=== PATIENT | male | born 1955 | race Caucasian/White ===

== ENCOUNTER 2020-09-29 13:11 | Outpatient (CLI) | payer MEDICARE, SELFPAY ==
--- NOTE | 2020-09-29 13:51 | XR_ITS ---
NOTE: Report was unsigned for reason: Ordering provider was edited. Original Signature date and time was: 09/29/20 @ 7075 WS: [id number] THORACIC SPINE TECHNIQUE: 3 views of the thoracic spine CLINICAL INFORMATION: NECK AND BACK PAIN COMPARISON: None. FINDINGS: Mild thoracic curve convex left. Spinal stimulator with electrode leads in the mid thoracic canal. Prior postoperative changes pedicle screw fixation with interconnecting rods mid thoracic spine. This is unchanged. Diffuse hypertrophic changes thoracic spine. Chronic appearing anterior wedging in the mid thoracic spine is unchanged. [facility] XR/XR thoracic spine 3V* [id number] IMPRESSION: 1. Dorsal marizol and pedicle screw fixation mid thoracic spine appears unchanged in good position. 2. Thoracic spinal canal stimulator appears intact. 3. Moderate thoracic kyphosis with hypertrophic changes thoracic spine
--- NOTE | 2020-09-29 13:51 | XR_ITS ---
NOTE: Report was unsigned for reason: Ordering provider was edited. Original Signature date and time was: 09/29/20 @ 1932 WS: [id number] CERVICAL SPINE TECHNIQUE: 3 views of the cervical spine CLINICAL INFORMATION: NECK AND BACK PAIN COMPARISON: None. FINDINGS: Straightening of the normal cervical lordosis. Moderate spondylitic changes. Normal C1-2 articulation. Normal prevertebral soft tissues. Moderate facet arthropathy mid and lower cervical spine. Normal dens. No acute cervical spine findings. [facility] XR/XR cervical spine 3V* [id number] IMPRESSION: Moderate spondylitic changes cervical spine as described above. No acute findin gs.
--- NOTE | 2020-09-29 13:51 | XR_ITS ---
NOTE: Report was unsigned for reason: Ordering provider was edited. Original Signature date and time was: 09/29/20 @ 4381 WS: [id number] LUMBAR SPINE TECHNIQUE: 3 views of the lumbar spine CLINICAL INFORMATION: NECK AND BACK PAIN COMPARISON: None. FINDINGS: Five [id number] lumbar vertebral bodies. Lumbar spinal stimulator with electrodes extending into the dorsal spinal canal lower thoracic spine. Hypertrophic changes lumbar spine. Hypertrophic changes lower thoracic spine. Mild disc space narrowing L4-L5 and L5-S1. No acute appearing compression fractures. Mild chronic anterior wedging lower thoracic spine. Advanced facet arthropathy L5-S1. [facility] XR/XR lumbar spine 2-3V* [id number] IMPRESSION: 1. Moderate spondylitic changes lumbar spine described above. 2. Mild disc space narrowing L4-L5 and L5-S1. 3. Chronic appearing compression deformities in the lower thoracic spine
== END 2020-09-29 13:12 | disposition home or self-care (01) ==
PROVIDERS: PCP Nurse Practitioner Family; Visit Provider Anesthesiology
DX: M54.2 Cervicalgia (principal); M40.294 Other kyphosis, thoracic region
CPT/HCPCS: 72040; 72072; 72100

== ENCOUNTER → 2020-12-13 11:31 | Outpatient (BNVA) | payer MEDICARE, SELFPAY | PROVIDERS: PCP Nurse Practitioner Family; Visit Provider Orthopaedic Surgery | DX: M16.11 Unilateral primary osteoarthritis, right hip (principal); I25.2 Old myocardial infarction | CPT/HCPCS: 73502 ==

== ENCOUNTER → 2021-01-09 08:13 | Outpatient (BNVA) | payer MEDICARE, SELFPAY | PROVIDERS: PCP Nurse Practitioner Family; Referring Provider Orthopaedic Surgery; Visit Provider Urology | DX: R30.0 Dysuria (principal); Z12.5 Encounter for screening for malignant neoplasm of prostate; N40.1 Benign prostatic hyperplasia with lower urinary tract symptoms | CPT/HCPCS: 81003; G0103 ==

== ENCOUNTER → 2021-09-13 09:17 | Outpatient (BNVA) | payer MEDICARE, SELFPAY | PROVIDERS: PCP Nurse Practitioner Family; Referring Provider Nurse Practitioner Family; Visit Provider Orthopaedic Surgery | DX: M16.11 Unilateral primary osteoarthritis, right hip (principal) | CPT/HCPCS: 73502 ==

== ENCOUNTER → 2021-10-27 08:31 | Outpatient (BNVA) | payer MEDICARE, SELFPAY | PROVIDERS: PCP Nurse Practitioner Family; Visit Provider Internal Medicine | DX: I25.10 Atherosclerotic heart disease of native coronary artery without angina pectoris (principal); I25.2 Old myocardial infarction; R06.02 Shortness of breath; F17.200 Nicotine dependence, unspecified, uncomplicated | CPT/HCPCS: 99214 ==

== ENCOUNTER 2021-12-11 08:06 | Outpatient (CLI) | payer MEDICARE, SELFPAY ==
[2021-12-11 08:48] VITALS: BMI 35.2
--- NOTE | 2021-12-11 08:49 | USCV_ITS ---
Richard Blakely Age: 66 Gender: M : 1955 Exam Date: 12/11/2021 09:10 Ordering Phys: Shalom Carpenter M.D ([email or web address]) Technologist: Exam Location: [facility] [place] Indication: chest pain BP: 145 / 75 HR: 74 Rhythm: Sinus Technical Quality: Adequate MEASUREMENTS (Male / Female) Normal Values 2D ECHO LV Diastolic Diameter PLAX 4.3 cm 4.2 - 5.9 / 3.9 - 5.3 cm LV Systolic Diameter PLAX 3.1 cm IVS Diastolic Thickness 1.3 cm 0.6 - 1.0 / 0.6 - 0.9 cm IVS Systolic Thickness 1.2 cm LVPW Diastolic Thickness 1.4 cm 0.6 - 1.0 / 0.6 - 0.9 cm LVPW Systolic Thickness 1.8 cm LVOT Diameter 2.1 cm LV Ejection Fraction 2D Teich 56.3 % LV Ejection Fraction MOD 2C 70.7 % LV Ejection Fraction 2C AL 69.0 % LA Diameter 3.6 cm Aorta at Sinotubular Diameter 3.1 cm M-MODE Aortic Annulus Diameter 3.8 cm LA Ao Ratio MM 0.9 MV E Point Septal Separation 1.8 cm DOPPLER AV Peak Velocity 120.0 cm/s LVOT Peak Velocity 71.0 cm/s AV Area Cont Eq vti 2.6 cm squared AV Area Cont Eq pk 2.1 cm squared MV Area PHT 5.0 cm squared Mitral E to A Ratio 0.5 MV E' Velocity 27.5 cm/s Mitral E to MV E' Ratio 4.5 Mitral E to LV E' Lateral Ratio 5.3 Mitral E to LV E' Septal Ratio 3.9 TR Peak Velocity 302.3 cm/s TR Peak Gradient 36.6 mmHg TV Peak E Velocity 82.0 cm/s Right Atrial Pressure 3.0 mmHg Pulmonary Artery Systolic Pressu 39.6 mmHg PV Peak Velocity 118.0 cm/s FINDINGS Left Ventricle Normal left ventricular size. LV systolic function is mildly reduced with EF of 40-45%. Mild global hypokinesis. Grade 1 diastolic dysfunction. Right Ventricle The right ventricle is normal in size and function. Right Atrium The right atrium is normal in size. Left Atrium The left atrium is normal in size. Mitral Valve Structurally normal mitral valve without significant stenosis or prolapse. There is no mitral regurgitation. Aortic Valve Structurally normal aortic valve without significant sclerosis or stenosis. There is no aortic regurgitation. Tricuspid Valve Structurally normal tricuspid valve without significant stenosis. Mild tricuspid regurgitation. Insufficient TR jet to calculate RVSP Pulmonic Valve Not well visualized. Pericardium Normal pericardium without effusion. Aorta Mildly dilated IVC CONCLUSIONS LV systolic function is mildly reduced with EF of 40 to 45%. Grade 1 diastolic dysfunction Mild tricuspid regurgitation. Mildly dilated aorta. No comparison studies available for Shalom Carpenter MD (Electronically Signed) Final Date: 20 December 2021 18:15 S
--- NOTE | 2021-12-11 08:49 | NMCV_ITS ---
NM sampson perf SPECT r/s* [id number] Richard Blakely Age: 66 Gender: M : 1955 Exam Date: 12/11/2021 09:45 Ordering Phys: Shalom Carpenter M.D ([email or web address]) Technologist: STU Bowman Exam Location: [facility] Indications: SHORTNESS OF BREATH STRESS TEST Please see separate stress test report in [facility] for full findings IMAGE PROTOCOL Rest/Stress 1 Lexiscan Day Radiopharmaceutical Dose (mCi) Administration Site Administered by Rest: Tc-99m 10.8 IV STU Beal Sestamibi Stress:Tc-99m 32.7 IV STU Beal Sestamibi Rest: 11-Dec-2021 60 Discovery 630 Stress: 11-Dec-2021 30 Discovery 630 0.4mg Lexiscan. Supine position only as patient was unable to lay prone. SPECT RESULTS Technical Quality: Excellent Raw Data Analysis: Normal Image Corrections: No attenuation or motion correction applied Summed Stress Score: 0 Summed Rest Score: 0 Summed Difference Score: 0 PERFUSION FINDINGS SPECT images demonstrate homogeneous tracer distribution throughout the myocardium. FUNCTIONAL RESULTS (calculated via Gated SPECT) Stress Image LV EF (%): 47 Stress EDV (mL):125 TID: 0.97 Stress ESV (mL):66 FUNCTIONAL FINDINGS: LV systolic function is mildly reduced with EF of 47% IMPRESSIONS 1. Normal myocardial perfusion imaging with no evidence of ischemia 2. LV systolic function is mildly reduced Shalom Carpenter MD (Electronically Signed) Final Date: 13 December 2021 18:12 S
--- NOTE | 2021-12-11 08:49 | ECG_ITS ---
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 Interpretive Statements NAME OF STUDY: LEXISCAN SESTAMIBI STRESS TEST INDICATION: [Shortness of Breath] Procedure: At the baseline, the blood pressure was 130/81 mmHg with a heart rate of 71 bpm. The electrocardiogram showed normal sinus rhythm, normal axis with normal ST and T's. The Lexiscan was infused over a period of 20 seconds. A total of 0.4 mg of Lexiscan was infused. The stress phase was continued for a total of 5 minutes. Heart rate was at the end of stress phase was 84 bpm and a blood pressure of 115/71 mmHg. The EKG at the peak infusion revealed since normal sinus rhythm with no significant ST-T wave changes. Sestamibi was injected 20 seconds after the Lexiscan infusion. Blood pressure at the end of recovery phase was 111/68 mmHg with a heart rate of 80 bpm. Conclusion: 1. Normal EKG response to Lexiscan infusion 2. No Lexiscan induced chest pain or cardiac arrhythmia. 3. Normal blood pressure and heart rate response. 4. Sestamibi/sestamibi perfusion scan pending; see separate report. Electronically Signed On 01-06-2022 11:56:33 CDT by Shalom Carpenter M.D. [id number]
[2021-12-11] MEDS: perflutren protein-a microsphr 0.22 mg/mL SDV 3 mL IV (09:36)
[2021-12-11 10:45] VITALS: BP 111/68; PULSE 80
[2021-12-11] MEDS: regadenoson 0.4 Mg/5 ml Syringe IVP (10:45)
== END 2021-12-11 08:07 | disposition home or self-care (01) ==
LOC: CDL 08:24
PROVIDERS: PCP Nurse Practitioner Family; Visit Provider Internal Medicine
DX: R06.02 Shortness of breath (principal); R07.9 Chest pain, unspecified; I07.1 Rheumatic tricuspid insufficiency
CPT/HCPCS: 78452; 93017; A9500; C8929; J2785; Q9956

== ENCOUNTER → 2021-12-15 11:00 | Outpatient (BNVA) | payer MEDICARE, SELFPAY | PROVIDERS: PCP Nurse Practitioner Family; Visit Provider Internal Medicine | DX: I25.10 Atherosclerotic heart disease of native coronary artery without angina pectoris (principal); I25.2 Old myocardial infarction; R06.02 Shortness of breath; F17.200 Nicotine dependence, unspecified, uncomplicated | CPT/HCPCS: 99214 ==

== ENCOUNTER → 2022-01-03 15:02 | Outpatient (BNVA) | payer MEDICARE, SELFPAY | PROVIDERS: PCP Nurse Practitioner Family; Visit Provider Orthopaedic Surgery | DX: M16.11 Unilateral primary osteoarthritis, right hip (principal) | CPT/HCPCS: 99213; 99214 ==

== ENCOUNTER 2022-02-05 13:22 | Observation (INO) | payer MEDICARE, SELFPAY ==
[2022-01-23 13:35] VITALS: BMI 35.2
--- NOTE | 2022-01-23 14:08 | ANES.PREANE2 ---
Pre-Anesthetic Assessment Height/Weight: Height 1.78 m Weight 111.13 kg Preop Diagnosis: OA Operation Date: 02/05/22 09:25 Proposed Procedures p Right total hip arthroplasty:00098,M16.11(Not Applicable) - Jin Elliott MD Familial anesthetic complications: None Was Beta Alfredo taken within 24 hours: N/A Was Clonidine taken within 24 hours: N/A Social Tobacco and No alcohol Exam alert, oriented x 3, clear to auscultation bilaterally and regular rate & rhythm Airway Submandibular: within normal limits Cervical ROM: within normal limits Mallampati: Class II Comments: Comments: Missing most teeth Pulmonary Chronic Obstructive Pulmonary Disease Has had worsening SOB for past few months CV/HEM Coronary Artery Disease and Myocardial Infarction (Able to ascend flight of stairs w/o CP) Stress Test 11/2021 Conclusion: 1.? Normal EKG response to Lexiscan infusion 2.? No Lexiscan induced chest pain or cardiac arrhythmia. 3.? Normal blood pressure and heart rate response. 4.? Sestamibi/sestamibi perfusion scan pending; see separate report. TTE 11/2021 ?CONCLUSIONS ?LV systolic function is mildly reduced with EF of 40 to 45%. ?Grade 1 diastolic dysfunction ?Mild tricuspid regurgitation. ?Mildly dilated aorta. ?No comparison studies available for BPH Hepatic None reported GI Gastroesophageal Reflux Disease (Well controlled ) Metabolic None reported Musc/skel Lower Back Pain and Osteoarthritis/DJD Neuropsych Chronic pain on buprenorphine S/P thoracic spinal cord stimulator placement Anesthetic Plan ASA status: 3 Anesthesia: Anesthesia Evaluation, General and Regional (specify below) (Spinal) Other: We discussed risk and benefits of general vs spinal anesthesia including DVT risk, infection, paralysis/catastrophic nerve injury, back bruising/pain, PDPH, conversion to general in case of spinal, PONV, sore throat (sometimes severe), corneal abrasion, positioning and peripheral nerve injuries, life threatening allergic reaction, post operative ICU admission requiring prolonged intubation, stroke, heart attack, , post operative delirium and/or post operative cognitive decline, and rare incidences of recall (under general anesthesia). Patient elects and consents to spinal anesthesia. a Risk of > 500 ml blood loss (7ml/kg in children): No Medications/Allergies Home Medications Medication Instructions Recorded Confirmed Last Taken Type albuterol 90 mcg/actuation aerosol mcg inhalation 08/30/20 01/03/22 Unknown History inhaler gabapentin 800 mg tablet 800 mg PO QID 08/30/20 01/23/22 Unknown History oxycodone-acetaminophen 7.5 mg-325 1 tab PO Q4H PRN Pain 08/30/20 01/23/22 Unknown History mg tablet buprenorphine HCl 300 mcg buccal 300 mcg buccal Q12H 10/27/21 01/23/22 Unknown History film (Belbuca) famotidine 20 mg tablet 20 mg PO BID 10/27/21 01/23/22 Unknown History prednisone 10 mg tablet 10 mg PO DAILY PRN sob 10/27/21 01/23/22 Unknown History amlodipine 5 mg tablet 5 mg PO DAILY #90 tabs 11/22/21 01/23/22 Unknown Rx nitroglycerin 0.4 mg sublingual 0.4 mg sublingual Q5M PRN chest 12/15/21 01/23/22 Unknown Rx tablet (Nitrostat) pain #25 tabs tamsulosin 0.4 mg capsule See Rx Instructions .Route 01/23/22 01/23/22 Unknown Rx .COMPLEX #30 caps Allergies Allergy/AdvReac Type Severity Reaction Status Date / Time Penicillins Allergy Unknown Verified 01/23/22 13:30 PFSH Anesthesia Medical History BPH loc w urin obs/LUTS Compartment syndrome Depression Myocardial infarct 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 Surgical History History of spinal fusion Family History Father , AT AGE 86 Heart disease Mother , AT AGE 88 Cancer ESOPHAGEAL AND BREAST Social History Smoking and tobacco status: current every day smoker Alcohol intake: current Alcohol intake frequency: holidays/special occasions only Marital status: / Current occupational status: retired and disabled History of recent travel: No Data Anesthesia : 01/23/22 14:10 01/23/22 14:10 Cardiac Studies: Echocardiogram 12/11/21 Sestamibi Stress Test (Cardiology) 12/11/21
[2022-01-23 14:17] LABS: Basophils % 0.3 %; Eosinophils # 0.1 10^3/uL (0.0-0.8); Eosinophils % 1.1 %; Hematocrit 47.4 % (42.0-52.0); Lymphocytes # 2.4 10^3/uL (0.8-4.8); Lymphocytes % 19.7 %; Mean Corpuscular HGB Conc 31.6 g/dL (30.0-36.0); Mean Corpuscular Hemoglobin 27.6 pg (28.0-34.0); Mean Corpuscular Volume 87.1 fl (80-94); Mean Platelet Volume 9.6 fL (7.4-10.4); Monocytes # 0.7 10^3/uL (0.2-0.9); Neutrophils # 8.74 10^3/uL (1.8-7.7); Neutrophils % 72.4 %; Nucleated Red Blood Cells % 0 %; Platelet Count 369 10^3/cmm (130-400); Red Blood Count 5.44 10^6/uL (4.1-5.3); Red Cell Distribution Width 13.2 % (12.1-15.1); White Blood Count 12.1 10^3/uL (4.0-10.0)
--- NOTE | 2022-01-23 16:43 | P.ANESASSM_ITS ---
Pre-Anesthetic Assessment Height/Weight: Height 1.78 m Weight 111.13 kg Preop Diagnosis: OA Operation Date: 02/05/22 09:25 Proposed Procedures p Right total hip arthroplasty:00499,M16.11(Not Applicable) - Jin Elliott MD Anesthetic Plan ASA status: 3 Anesthesia: Anesthesia Evaluation and General Other: We discussed risk and benefits of general vs spinal anesthesia including DVT risk, infection, paralysis/catastrophic nerve injury, back bruising/pain, PDPH, conversion to general in case of spinal, PONV, sore throat (sometimes severe), corneal abrasion, positioning and peripheral nerve injuries, life threatening allergic reaction, post operative ICU admission requiring prolonged intubation, stroke, heart attack, , post operative delirium and/or post operative cognitive decline, and rare incidences of recall (under general anesthesia). Please see previous pre-anesthetic evaluation note completed for LIANE planned 02/05/22 for additional documentation. Review of radiographs reveals electrode leads extending through lumbar spine. Patient consented to both spinal and general anesthesia today pending further evaluation of imaging. Plan general anesthesia. Medications/Allergies Home Medications Medication Instructions Recorded Confirmed Last Taken Type albuterol 90 mcg/actuation aerosol mcg inhalation 08/30/20 01/03/22 Unknown History inhaler gabapentin 800 mg tablet 800 mg PO QID 08/30/20 01/23/22 Unknown History oxycodone-acetaminophen 7.5 mg-325 1 tab PO Q4H PRN Pain 08/30/20 01/23/22 Unknown History mg tablet buprenorphine HCl 300 mcg buccal 300 mcg buccal Q12H 10/27/21 01/23/22 Unknown History film (Belbuca) famotidine 20 mg tablet 20 mg PO BID 10/27/21 01/23/22 Unknown History prednisone 10 mg tablet 10 mg PO DAILY PRN sob 10/27/21 01/23/22 Unknown History amlodipine 5 mg tablet 5 mg PO DAILY #90 tabs 11/22/21 01/23/22 Unknown Rx nitroglycerin 0.4 mg sublingual 0.4 mg sublingual Q5M PRN chest 12/15/21 01/23/22 Unknown Rx tablet (Nitrostat) pain #25 tabs tamsulosin 0.4 mg capsule See Rx Instructions .Route 01/23/22 01/23/22 Unknown Rx .COMPLEX #30 caps Allergies Allergy/AdvReac Type Severity Reaction Status Date / Time Penicillins Allergy Unknown Verified 01/23/22 13:30 [facility] Anesthesia Medical History BPH loc w urin obs/LUTS Compartment syndrome Depression Myocardial infarct 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 Surgical History History of spinal fusion Family History Father , AT AGE 86 Heart disease Mother , AT AGE 88 Cancer ESOPHAGEAL AND BREAST Social History Smoking and tobacco status: current every day smoker Alcohol intake: current Alcohol intake frequency: holidays/special occasions only Marital status: / Current occupational status: retired and disabled History of recent travel: No Data Anesthesia : 01/23/22 14:10 01/23/22 14:10 Short CBC 01/23/22 Range/Units 14:10 WBC 12.1 H (4.0-10.0) 10^3/uL Hgb 15.0 (11.7-16.6) g/dL Hct 47.4 (42.0-52.0) % MCV 87.1 (80-94) fl Plt Count 369 (130-400) 10^3/cmm Neut % (Auto) 72.4 % Neut # (Auto) 8.74 H (1.8-7.7) 10^3/uL BMP 01/23/22 14:10 Sodium 138 Chloride 100 Carbon Dioxide 26 BUN 12 Creatinine 0.9 Glucose 113 Calcium 9.8 Cardiac Studies: Echocardiogram 12/11/21 Sestamibi Stress Test (Cardiology) 12/11
[2022-02-05] VITALS (26 sets, daily range): BP systolic 111–154; BP diastolic 71–96; PULSE 52–110; RESP 4–22; TEMP 36.1–36.7; O2SAT 81–99
--- NOTE | 2022-02-05 10:38 | P.ANESUD_ITS ---
Pre-Anesthetic Update Pre-Anesthetic Assessment: Date of Surgery/Procedure: 02/05/22 Preop Yasmine gnosis: OsteoarthritisRight hip Proposed Procedure: Operation Date: 02/05/22 13:00 Proposed Procedures p Right total hip arthroplasty:64316,M16.11(Not Applicable) - Jin Elliott MD Any changes to Pre-Anesthetic Assessment?: No Last Intake: 02/04/22 Exam: Pre-Anes Outpt Exam: alert, oriented x 3, clear to auscultation bilaterally and regular rate & rhythm Cardiac Studies: Echocardiogram 12/11/21 Sestamibi Stress Test (Cardiology) 12/11
[2022-02-05] MEDS: acetaminophen 500 mg Tablet 1000 MG PO (10:51)
[2022-02-05] MEDS: CELEcoxib 200 mg Capsule 400 MG PO (10:51)
[2022-02-05] MEDS: oxyCODONE 20 mg ER (12 HR) Tablet PO (10:51)
[2022-02-05] MEDS: sodium chloride 0.9% 1,000 ML 30 ML IV (10:51)
--- NOTE | 2022-02-05 11:07 | W.PM.OPSFHP ---
Same Day Surgery H&P Indication for Procedure/HPI DATE OF PROCEDURE: February 05, 2022 CHIEF COMPLAINT/INDICATIONFOR SURGICAL PROCEDURE: Osteoarthritis right hip here for right total hip arthroplasty PREOP DIAGNOSIS: OsteoarthritisRight hip PLANNED PROCEDURE: Operation Date: 02/05/22 13:00 Proposed Procedures p Right total hip arthroplasty:79316,M16.11(Not Applicable) - Jin Elliott MD 66-year-old male with years of right hip pain much worse over the past few months. Now barely able to ambulate even short distances. Pain is managed by [facility] in [facility]. Here today for elective right total hip arthroplasty Medications/Allergies* Home Medications Medication Instructions Recorded Confirmed Type albuterol 90 mcg/actuation aerosol 90 mcg inhalation DAILY 08/30/20 02/05/22 History inhaler gabapentin 800 mg tablet 800 mg PO QID 08/30/20 02/05/22 History oxycodone-acetaminophen 7.5 mg-325 1 tab PO Q4H PRN Pain 08/30/20 02/05/22 History mg tablet buprenorphine HCl 300 mcg buccal 300 mcg buccal Q12H 10/27/21 02/05/22 History film (Belbuca) famotidine 20 mg tablet 20 mg PO BID 10/27/21 02/05/22 History prednisone 10 mg tablet 10 mg PO DAILY PRN sob 10/27/21 02/05/22 History Allergies/Adverse Reactions Allergy/AdvReac Type Severity Reaction Status Date / Time Penicillins Allergy Unknown Verified 01/23/22 13:30 Current Medications: Generic Name Dose Route Start Last Admin Trade Name Freq PRN Reason Stop Dose Admin Sodium Chloride 1,000 mls @ 30 mls/hr 02/05/22 10:15 02/05/22 10:51 Sodium Chloride 0.9% IV 02/06/22 10:14 30 mls/hr .Q24H JOE Administration Pertinent History/Comorbid Conditions* Medical History (Updated 10/27/21 @ 09:59 by Shalom Carpenter M.D) BPH loc w urin obs/LUTS Compartment syndrome Depression Myocardial infarct 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 Surgical History (Updated 08/30/20 @ 14:05 by KEREN Goldstein) History of spinal fusion Family History (Updated 01/09/21 @ 08:32 by Clementina Lyndon, MAIL S[employer]TER AND DELIVERY) Father, AT AGE 86 Mother, AT AGE 88 Heart disease Father Cancer Mother ESOPHAGEAL AND BREAST Social History Smoking and tobacco status: current every day smoker Alcohol intake: current Alcohol intake frequency: holidays/special occasions only Marital status: / Current occupational status: retired and disabled History of recent travel: No Pertinent Exam Findings alert, oriented x 3, clear to auscultation bilaterally, regular rate & rhythm and operative site marked Recommendations Surgery/Procedure today Coding Level of Care Code Acute Client Relations Specialist for Maico Lakhani
[2022-02-05] MEDS: ceFAZolin 2,000 MG in sodium chloride 0.9% (plus) 50 ML 100 MG IV ×3 (11:46→22:50)
[2022-02-05] MEDS: tranexamic acid 1,000 mg/10mL SDV 1000 MG IV (12:20)
--- NOTE | 2022-02-05 13:58 | P.OP_ITS ---
Operative Report Date of procedure: February 05, 2022 Pre-op diagnosis: Preop Diagnosis OsteoarthritisRight hip Post-op diagnosis: same Post-op diagnosis: Same Post-op findings: Same Procedure done: Right total hip arthroplasty Implants: 1) Greg 62 mm Trident 2 solid back acetabular shell 2) Size 5 [place] 127 degree neck angle Accolade 2 stem 3} 28mm -2.7 ceramic femoral head 4} MDM metal liner Pathology: none sent Surgeon: Jin Elliott Estimated blood loss (mL): 250 Complications: None Findings: Patient eburnated bone over the femoral head and acetabular Condition: stable Disposition: PACU Procedure: The patient was taken to the operating room and anesthesia provided by the anesthesia service. The patient was placed in the lateral position on a pegboard. A timeout was performed. The patient was draped in the usual fashion. A 15 cm long incision was made beginning just proximal to the greater trochanter and extending posteriorly to a point just distal to the trochanter on the posterior border of the trochanter. Dissection was carried down with landry ctrocautery through the subcutaneous fat to the fascia patricia which was divided proximally and distally with curved scissors. The anterior two thirds of the gluteus medius and minimus were elevated off the hip with electrocautery. The capsule was divided in a H-like fashion. The hip was dislocated and a neck cut made just above the level of the lesser trochanter. Exposure of the acetabulum was facilitated with the acetabular retractors. Remnants of labrum and peripheral osteophytes were removed with electrocautery and a rongeur. A reamer 2 mm under the size the femoral head was utilized to ream medially to the base of the palm and are. Reaming was then increased in 1 mm intervals until a healthy rim a trabecular bone was encountered. The rim was touched with the reamer the size of the final acetabular shell to be placed. A final Trident 2 acetabular cup of the same size as the final reaming was press- fit into place. The ADM liner was secured. Attention was then focused on the femur. The canal was localized with a canal finder. Broaching was then accomplished until a stable broach size was obtained. A trial reduction with the head and neck provided excellent stability. The wound was irrigated with saline and antibiotic solution. The final [place] Accolade II stem was press-fit into place. The femoral head was placed and the hip was reduced. The hip was brought through range of motion and found to be free of impingement and stable. The anterior capsule was reapproximated with 1 Ethibond. The gluteus medius and minimus were repaired through bone with 5 Ethibond and reinforced with 1 Ethibond. The fascial patricia was closed with a running 0 Stratafix suture. Deep pelvic tissues were closed with 2-0 Stratafix and the skin with a running 4-0 l Stratafix. The skin was covered with a Prineo dressing and op site dressings.
--- NOTE | 2022-02-05 14:06 | XRR_ITS ---
PROCEDURE INFORMATION: Exam: XR Right Hip Exam date and time: 02/05/2022 2:13 PM Age: 66 years old Clinical indication: Device placement; Other: Total right hip; Prior surgery; Surgery date: Post-operative (0-2 days); Additional info: Right total hip TECHNIQUE: Imaging protocol: Radiologic exam of the Right hip. Views: 1 view hip with pelvis when performed. COMPARISON: CR XR hip RT 2-3V wo/w pel* [id number] 09/13/2021 9:24 AM FINDINGS: Bones/joints: The patient has had a right bipolar hip arthroplasty. No periprosthetic lucency. No fracture. No dislocation. Soft tissues: Postoperative soft tissue changes. XR/XR hip RT 1V wo/w pel [id number] IMPRESSION: Postoperative changes.
[2022-02-05] MEDS: meperidine 50 mg/mL INJ 12.5 MG IVP ×2 (14:15→14:23)
--- NOTE | 2022-02-05 14:34 | SUR.PHASEI ---
1359 PT TO PACU SLEEPY WITH GOOD RESP EFFORT NOTED MONITOR SR WITH NO ECTOPY, PT ON 8L MASK, IV TO LT WRIST #20 PATENT TO 400ML NS UP AT KVO RATE PER GRAVITY, ID BRACELET TO RT WRIST, PT ID'D WITH 2 IDENTIFIERS, PT SHIVERING, WARM BLANKETS X 3 TO PT, VSS RT HIP DRESSING D/I , FIRST ICE TO SITE, ABD PILLOW IN PLACE DISTAL RT FOOT PINK WARM WITH STRONG REGULAR PULSE PALPATED +3 AND MARKED BILAT SCDS ON. SEE EARLIER PAIN MEDS GIVEN FOR SHIVERING, PT GIVEN WARM BLANKETS X 2 AGAIN PT SLEEPS IF NOT DISTURBED, VSS. DRESSING D/I
[2022-02-05] MEDS: fentaNYL 50 mcg/mL INJ 2mL IVP (14:41)
--- NOTE | 2022-02-05 14:47 | SUR.PHASEI ---
PT NOW RESTING MORE QUIETLY STATES PAIN IS BETTER, MONITOR SR NO ECTOPY, RT HIP SITE D/I AND UNCHANGED ABD PILLOW IN PLACE AND BILAT SCDS ON .
--- NOTE | 2022-02-05 15:19 | SUR.PHASEI ---
PT TO FLOOR PER BED PT FAMILY IN ROOM, PT DAUGHTER WITH SPINAL STIMULATOR CONTROL TURNED ON HIS SPINAL STIMULATOR, PT AWAKE ALERT TALKATIVE WITH STAFF, PT DRESSING D/I UNCHANGED FIRST ICE TO SITE, RT FOOT PINK WARM WITH STRONG PULSE NOTED. HANDOFF WITH NURSE MARTINEZ ROTH AT BEDSIDE.
[2022-02-05] MEDS: morphine 4 mg/mL SDV 1 mL IVP ×2 (15:43→21:15)
--- NOTE | 2022-02-05 16:30 | ANE.PACU2 ---
Inpatient post-anesthesia follow up: Airway intact: Yes Vital signs: Temperature 97.7 F Pulse Rate 90 Respiratory Rate 19 Blood Pressure 123/74 Pulse Oximetry 94 Oxygen Delivery Me thod Nasal Cannula Oxygen Flow Rate 2 Fraction of Inspir ed Oxygen Hydration adequate: Yes Nausea and vomiting: No Pain level: 3 Mental status: Baseline Additional Comments: Patient pain level elevated despite multi modal analgesia
[2022-02-05] MEDS: CELEcoxib 200 mg Capsule PO (16:37)
[2022-02-05] MEDS: oxyCODONE 5 mg IR Tab/Cap 15 MG PO ×2 (18:03→22:54)
[2022-02-05] MEDS: famotidine 20 mg Tablet PO (18:04)
[2022-02-05] MEDS: gabapentin 400 mg Capsule 800 MG PO ×2 (18:04→21:24)
--- NOTE | 2022-02-05 21:55 | PC.NURSE ---
AMB TO [facility] Pt has BPH and is unable to urinate in bed. Wanted to try ambulating to the bathroom so he could urinate better. Up with walker and 2 assist. Did very well with WBAT. Able to urinate well and say emptied his bladder much better.
[2022-02-06] VITALS (15 sets, daily range): BP systolic 77–121; BP diastolic 52–91; PULSE 72–106; RESP 16–24; TEMP 36.4–37; O2SAT 91–96
[2022-02-06] MEDS: morphine 4 mg/mL SDV 1 mL IVP ×3 (02:34→11:31)
--- NOTE | 2022-02-06 02:52 | PC.NURSE ---
BLEEDING Dressing to right hip saturated. Pressure held and reinforced dressing with pressure dressing with ABD's/tape. Will monitor. Ice pack in place
[2022-02-06] MEDS: CELEcoxib 200 mg Capsule PO ×2 (03:00→16:14)
[2022-02-06 03:20] LABS: Hemoglobin 13.5 g/dL (11.7-16.6)
[2022-02-06] MEDS: oxyCODONE 5 mg IR Tab/Cap 15 MG PO ×4 (04:05→18:48)
--- NOTE | 2022-02-06 04:07 | PC.NURSE ---
DRESSING CHECK Pressure dressing to R hip remains in place and is dry
[2022-02-06] MEDS: ceFAZolin 2,000 MG in sodium chloride 0.9% (plus) 50 ML 100 MG IV (06:43)
--- NOTE | 2022-02-06 06:56 | PC.NURSE ---
NOTE Has had no further bleeding from R hip incision. Pressure dressing remains intact and dry. Stood at bedside to use urinal this am. Is very pleasant and talkative. Likes to joke. Has had alternating pain meds of OXYIR and IV Morphine. Received last doses of postop antibiotics. ABD pillow in place. Ice pack to R hip. Neurovascular check is WNL. Taking po fluids very well.
[2022-02-06] MEDS: aspirin 325 mg EC Tablet PO (08:51)
[2022-02-06] MEDS: gabapentin 400 mg Capsule 800 MG PO ×4 (08:51→21:03)
[2022-02-06] MEDS: famotidine 20 mg Tablet PO ×2 (08:51→17:28)
[2022-02-06] MEDS: amlodipine 5 mg Tablet PO (08:51)
--- NOTE | 2022-02-06 13:10 | PM.PN ---
Subjective Subjective: Patient's pain is under better control today. Was able to get out of bed and walk back and forth to the bathroom before became tachycardic and short of breath. Sitting in chair comfortably. Tolerating p.o. intake. Passing urine Vitals/I&O/Wt Last Vital Signs Temp 98.2 F 02/06/22 11:35 Pulse 106 H 02/06/22 11:35 Resp 16 02/06/22 12:39 BP 77/52 02/06/22 11:35 Pulse Ox 95 02/06/22 12:39 O2 Del Method 02/06/22 11:35 O2 Flow Rate 2 02/05/22 16:19 02/05/22 02/06/22 02/06/22 22:59 06:59 14:59 Intake Total 300 / 1950 890 / 2840 410 / 410 Balance 300 / 1700 890 / 2590 410 / 410 Physical Exam Narrative: Right hip dressing reinforced by clean and dry Minimal swelling right thigh Data : 02/06/22 03:03 01/23/22 14:10 A&P Assessment and plan (1) Status post right hip replacement: Slow progress with therapy. Will change to full admit. Anticipate discharge tomorrow. Status: Acute Attestations Medical Necessity Statement*: Slow progress with therapy. Anticipate discharge tomorrow. Coding Level of Care Code Acute Supervisor Of Research for Maico Lakhani Diagnoses Status post right hip replacement Z96.641
--- NOTE | 2022-02-06 20:01 | PC.NURSE ---
Spoke with regarding patients pain medications. The patient has been taking oxy IR and IV Morphine for pain. IV Morphine is out of stock and calling to request alternative medication for pain management. ordered PRN Dilaudid 0.25mg Q 2 hours PRN for severe pain.
[2022-02-06] MEDS: HYDROmorphone 1 mg/mL INJ 1 mL 0.25 MG IVP (21:12)
[2022-02-07] VITALS (10 sets, daily range): BP systolic 97–121; BP diastolic 67–79; PULSE 74–105; RESP 14–18; TEMP 36.7; O2SAT 94–96
[2022-02-07] MEDS: oxyCODONE 5 mg IR Tab/Cap 15 MG PO ×3 (00:04→11:52)
[2022-02-07] MEDS: HYDROmorphone 1 mg/mL INJ 1 mL 0.25 MG IVP ×4 (01:06→08:34)
[2022-02-07] MEDS: CELEcoxib 200 mg Capsule PO (03:05)
[2022-02-07] MEDS: famotidine 20 mg Tablet PO (08:34)
[2022-02-07] MEDS: gabapentin 400 mg Capsule 800 MG PO ×2 (08:34→12:24)
[2022-02-07] MEDS: amlodipine 5 mg Tablet PO (08:34)
[2022-02-07] MEDS: aspirin 325 mg EC Tablet PO (08:34)
--- NOTE | 2022-02-07 11:34 | PC.OT ---
OT TREATMENT ATTEMPTED THIS A.M. PATIENT IN BED WITH HOB ELEVATED AND REPORTS PAIN AND SIGNIFICANT FATIGUE DUE TO P.T. TREATMENT EARLIER IN THE MORNING. NURSING INFORMED OF PATIENT PAIN AND REQUEST FOR PAIN MEDICATION. WILL ATTEMPT OT LATER IN DAY.
--- NOTE | 2022-02-07 12:17 | PM.DCS ---
Discharge Providers Date of Admission: 02/05/22 13:22 Date of Discharge: February 07, 2022 Attending Provider at Admission: Jin Talbot MD Attending Provider at Discharge: Jin Talbot MD Primary Care Provider: KEREN Luis Diagnoses at Discharge Discharge Diagnosis (1) Status post right hip replacement: Status: Acute (2) Chronic narcotic use: Status: Acute Reason for Visit Reason for Visit: Brief History: The patient is a 66-year-old with chronic right hip pain. He was admitted for elective right total hip arthroplasty. He was previously under the care of [facility] for pain management Hospital Course Hospital Course The patient tolerated surgery well. They remained hemodynamically stable. They was begun on aspirin and sequential compression dressing for DVT prophylaxis. The patient was mobilized with therapy beginning the day of surgery and by the second postoperative day independent with the walker. By the second postoperative day pain was reasonably controlled with the regimen suggested by his pain management clinic. He was thought stable for discharge home Physical Exam Narrative: On the day of discharge the hip incision was clean. The incision was free of drainage. They had no particular swelling about the thigh or distal. No distal neurovascular deficits were noted. Discharge Data Studies Completed and Pending Completed Studies During Hospitalization Category Date Time Status XR hip RT 1V wo/w pel [id number] Routine Exams 02/05/22 14:06 Completed Radiology Impressions Hip X-Ray 02/05/22 14:06 IMPRESSION: Postoperative changes. Laboratory Results WBC 12.1 10^3/uL (4.0-10.0) H 01/23/22 14:10 RBC 5.44 10^6/uL (4.1-5.3) H 01/23/22 14:10 Hgb 13.5 g/dL (11.7-16.6) 02/06/22 03:03 Hct 47.4 % (42.0-52.0) 01/23/22 14:10 MCV 87.1 fl (80-94) 01/23/22 14:10 MCH 27.6 pg (28.0-34.0) L 01/23/22 14:10 MCHC 31.6 g/dL (30.0-36.0) 01/23/22 14:10 RDW 13.2 % (12.1-15.1) 01/23/22 14:10 Plt Count 369 10^3/cmm (130-400) 01/23/22 14:10 MPV 9.6 fL (7.4-10.4) 01/23/22 14:10 Neut % (Auto) 72.4 % 01/23/22 14:10 Lymph % (Auto) 19.7 % 01/23/22 14:10 [place] % (Auto) 6.0 % 01/23/22 14:10 Eos % (Auto) 1.1 % 01/23/22 14:10 Baso % (Auto) 0.3 % 01/23/22 14:10 Neut # (Auto) 8.74 10^3/uL (1.8-7.7) H 01/23/22 14:10 Lymph # (Auto) 2.4 10^3/uL (0.8-4.8) 01/23/22 14:10 [place] # (Auto) 0.7 10^3/uL (0.2-0.9) 01/23/22 14:10 Eos # (Auto) 0.1 10^3/uL (0.0-0.8) 01/23/22 14:10 Baso # (Auto) 0.0 10^3/uL (0.0-0.1) 01/23/22 14:10 Nucleated RBC % (auto) 0 % 01/23/22 14:10 Nucleated RBCs # 0.0 /100WBC 01/23/22 14:10 Sodium Cancelled 01/23/22 14:10 Potassium Cancelled 01/23/22 14:10 Chloride Cancelled 01/23/22 14:10 Carbon Dioxide Cancelled 01/23/22 14:10 Anion Gap Cancelled 01/23/22 14:10 BUN Cancelled 01/23/22 14:10 Creatinine Cancelled 01/23/22 14:10 GFR Calculation Cancelled 01/23/22 14:10 Glucose Cancelled 01/23/22 14:10 Calculated Osmolality Cancelled 01/23/22 14:10 Calcium Cancelled 01/23/22 14:10 Vitals Last Vital Signs Temp 98.0 F 02/07/22 07:44 Pulse 105 H 02/07/22 11:16 Resp 18 02/07/22 11:16 BP 97/67 02/07/22 11:16 Pulse Ox 96 02/07/22 11:16 O2 Del Method 02/07/22 11:16 O2 Flow Rate 2 02/05/22 16:19 Discharge Plan Discharge Patient Disposition: Home Condition: Stable Prescriptions: New aspirin 325 mg Tablet,Delayed Release (Dr/Ec) 325 mg PO DAILY 30 Days Qty: 30 0RF acetaminophen 500 mg Tablet 500 mg PO Q8H PRN (Reason: Mild Pain Or Increase Temp) 14 Days Qty: 28 0RF celecoxib 200 mg Capsule 200 mg PO Q12H 14 Days Qty: 28 0RF Continued buprenorphine HCl [Belbuca] 300 mcg film 300 mcg buccal Q12H famotidine 20 mg tablet 20 mg PO BID prednisone 10 mg tablet 10 mg PO DAILY PRN (Reason: sob) gabapentin 800 mg tablet 800 mg PO QID albuterol 90 mcg/actuation aerosol 90 mcg inhalation DAILY nitroglycerin [Nitrostat] 0.4 mg tablet, sublingual 0.4 mg sublingual Q5M PRN (Reason: chest pain) Qty: 25 3RF Rx Instructions: do not exceed 3 doses per episode amlodipine 5 mg tablet 5 mg PO DAILY Qty: 90 3RF Discontinued oxycodone-acetaminophen 7.5-325 mg tablet 1 tab PO Q4H PRN (Reason: Pain) Discharge Orders: Discharge Order (Routine); Ordered 02/07/22 Ordered By: Jin Talbot Other Ambulatory Orders: DME: [facility] (Order) Location: None Selected Ordered By: Jin Talbot Referrals: Will Frost FNP [Physician Pile Driving Supervisor] - 02/20/22 3:30 pm Discharge Diet: Advance as tolerated Discharge Activity: Limit activity as instructed Patient Instructions: Opioid Safety Activity Restrictions/Additional Instructions: Remove superficial dressing in a.m. Okay to shower once incision free of drainage Apply FirstIce up to 20 min/hr for pain and swelling Take Celebrex twice a day for the next 15 days for pain , discontinue other anti-inflammatories Take Tylenol 500mg 3 times a day for mild pain Pain medications as per [facility]. Call [facility] with any pain issues. Exercises per physical therapy. May weight-bear as tolerated on total hip arthroplasty IF HAVE ANY PROBLEMS OR QUESTIONS CALL HOSPITAL DIGITAL ACCOUNT DIRECTOR AT AND ASK TO HAVE DR. TALBOT PAGEManuel. Discharge Attestations Time Spent in Discharge Care*: other Quality Metrics Clinical Quality Measures [ No reported AMI, CVA or VTE this stay] Coding Level of Care Code Acute Chg FW DC note Diagnoses Status post right hip replacement Z96.641 Chronic narcotic use F11.90
== END 2022-02-07 15:18 | disposition home or self-care (01) ==
LOC: MEDSURG 13:22
PROVIDERS: Anesthesiology; Admitting Provider Orthopaedic Surgery; PCP Nurse Practitioner Family; Visit Provider Orthopaedic Surgery
PROC: (CPT 27130; principal; 2022-02-05 12:50)
DX: M16.11 Unilateral primary osteoarthritis, right hip (principal); F11.90 Opioid use, unspecified, uncomplicated; J44.9 Chronic obstructive pulmonary disease, unspecified; I25.10 Atherosclerotic heart disease of native coronary artery without angina pectoris; I25.2 Old myocardial infarction; N40.1 Benign prostatic hyperplasia with lower urinary tract symptoms; N13.8 Other obstructive and reflux uropathy; Z98.1 Arthrodesis status; F32.A Depression, unspecified; F17.210 Nicotine dependence, cigarettes, uncomplicated
CPT/HCPCS: 27130; 36415; 73501; 85018; 85025; 97110; 97116; 97161; 97166; 97530; 97535; C1776; G0378; J0360; J1100; J1170; J1580; J2175; J2270; J2405; J2704; J3010; J3490; J7030

== ENCOUNTER → 2022-02-20 15:19 | Outpatient (BNVA) | payer MEDICARE, SELFPAY | PROVIDERS: PCP Nurse Practitioner Family; Visit Provider Nurse Practitioner Family | DX: Z96.641 Presence of right artificial hip joint (principal) | CPT/HCPCS: 73502; 99024 ==

== ENCOUNTER → 2022-03-20 15:25 | Outpatient (BNVA) | payer MEDICARE, SELFPAY | PROVIDERS: PCP Nurse Practitioner Family; Visit Provider Nurse Practitioner Family | DX: Z96.641 Presence of right artificial hip joint (principal) | CPT/HCPCS: 73502; 99024; 99214 ==

== ENCOUNTER → 2022-04-06 09:53 | Outpatient (BNVA) | payer MEDICARE, SELFPAY | PROVIDERS: PCP Nurse Practitioner Family; Visit Provider Urology | DX: N40.1 Benign prostatic hyperplasia with lower urinary tract symptoms (principal) | CPT/HCPCS: 51741; 51798; 81003; 99213 ==

== ENCOUNTER 2022-05-24 06:00 | Outpatient (RCR) | payer MEDICARE, SELFPAY | END 2022-06-16 23:59 | disposition home or self-care (01) | LOC: WPT 06:00 | PROVIDERS: PCP Nurse Practitioner Family; Visit Provider Orthopaedic Surgery | DX: Z47.89 Encounter for other orthopedic aftercare (principal) | CPT/HCPCS: 97110; 97112; 97162; 97530 ==

== ENCOUNTER 2022-06-17 06:00 | Outpatient (RCR) | payer MEDICARE, SELFPAY | END 2022-07-17 23:59 | disposition home or self-care (01) | LOC: WPT 06:00 | PROVIDERS: PCP Nurse Practitioner Family; Visit Provider Orthopaedic Surgery | DX: Z47.89 Encounter for other orthopedic aftercare (principal) | CPT/HCPCS: 97110; 97112; 97116; 97530 ==

== ENCOUNTER → 2022-06-19 08:11 | Outpatient (BNVA) | payer MEDICARE, SELFPAY | PROVIDERS: PCP Nurse Practitioner Family; Visit Provider Nurse Practitioner Family | DX: Z96.641 Presence of right artificial hip joint (principal) | CPT/HCPCS: 73502; 99213 ==

== ENCOUNTER 2022-07-18 06:00 | Outpatient (RCR) | payer MEDICARE, SELFPAY | END 2022-08-14 23:59 | disposition home or self-care (01) | LOC: WPT 06:00 | PROVIDERS: PCP Nurse Practitioner Family; Visit Provider Orthopaedic Surgery | DX: Z47.89 Encounter for other orthopedic aftercare (principal) | CPT/HCPCS: 97110; 97112; 97116; 97530 ==

== ENCOUNTER → 2023-02-22 11:13 | Outpatient (BNVA) | payer MEDICARE, SELFPAY | PROVIDERS: PCP Nurse Practitioner Family; Visit Provider Nurse Practitioner Family | DX: I10 Essential (primary) hypertension (principal) | CPT/HCPCS: 80053; 80061 ==

== ENCOUNTER 2023-04-26 10:40 | Emergency (ER) | payer MEDICARE, SELFPAY ==
[2023-04-26 10:47] VITALS: BP 139/86; PULSE 98; RESP 17; TEMP 36.5; O2SAT 98; BMI 31.1
--- NOTE | 2023-04-26 11:29 | US_ITS ---
WS: [id number] ULTRASOUND SOFT TISSUES LEFT gluteal region. HISTORY: hematoma L buttock and leg COMPARISON: None available. TECHNIQUE: 2-D and color Doppler imaging is submitted. There is mild edema and mild soft tissue thickening involving the LEFT gluteal area. No mass identifi ed. No fluid collection. IMPRESSION: Very minimal soft tissue edema in the region of the LEFT pelvic bruise. No mass.
--- NOTE | 2023-04-26 11:30 | W.ED.EXTPRO ---
HPI - Extremity Problem General: Chief complaint: Extremity Problem,Nontraumatic Stated complaint: LT Leg Swollen/Bruise Time Seen by Provider: 04/26/23 10:58 Source: patient Mode of arrival: ambulatory History of Present Illness: 67-year-old male presents emergency room with large hematoma on his left buttock extending into his left posterior thigh. He is not on any anticoagulants. He has previously had a significant hematoma actually required transfusion in the past. He denies any falls or injury . No history of any platelet dyscrasias. He has not previously had any vascular work done to the lower extremities. 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 Depression Dysuria Myocardial infarct Shortness of breath 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 Surgical History H/O heart artery stent History of spinal fusion Hx of total hip arthroplasty 01/2022 R hip S/P coronary artery stent placement Family History Father , AT AGE 86 Heart disease Mother , AT AGE 88 Cancer ESOPHAGEAL AND BREAST Social History Smoking and tobacco/nicotine status: current every day tobacco/nicotine user Alcohol intake: current Alcohol intake frequency: holidays/special occasions only Marital status: / Current occupational status: retired and disabled Physical Exam Const: GENERAL APPEARANCE: cooperative ORIENTATION/CONSCIOUSNESS: Yes awake, Yes oriented to person, Yes oriented to place and Yes oriented to time HENMT: COMMON NORMALS: normocephalic, atraumatic and hearing grossly normal bilaterally HEAD & SCALP: normocephalic and atraumatic Resp: COMMON NORMALS: normal respiratory effort, No retractions, No use of accessory muscles and clear to auscultation bilaterally AUSCULTATION: clear to auscultation bilaterally Cardio: COMMON NORMALS: regular rate, regular rhythm and No murmurs present (Cardio) RATE: regular rate RHYTHM: regular rhythm GI: COMMON NORMALS: Soft to palpation and No hepatosplenomegaly present AUSCULTATION: Yes normoactive bowel sounds PALPATION: Yes Soft to palpation, No Tenderness to palpation present (GI), No Guarding due to palpation present (GI) and Yes No hepatosplenomegaly present Extremity: COMMON NORMALS: normal to inspection, capillary refill normal, no clubbing, cyanosis or edema, no calf tenderness and no pedal edema OTHER: Large amount of ecchymosis standing from the buttock down the left posterior thigh ending at the popliteal fossa. Tender to the touch not fluctuant Neuro: SENSORIUM/ORIENTATION: Yes oriented to person, Yes oriented to place and Yes oriented to time Skin: COMMON NORMALS: no rashes or lesions noted GENERAL SKIN EXAM: no rashes or lesions noted Course Vital Signs: Vital signs: Vital Signs Temperature 97.7 F 04/26/23 10:47 Pulse Rate 98 04/26/23 10:47 Respiratory Rate 17 04/26/23 10:47 Blood Pressure 139/86 04/26/23 10:47 Pulse Oximetry 98 04/26/23 10:47 Oxygen Delivery Me thod Room Air 04/26/23 10:47 MDM - Extremity (Nontraumatic) Medical Decision Making Mild anemia with a hemoglobin of 9 6. Large area of ecchymosis but no identifiable fluid collection on the ultrasound. We will discharge patient home and instructed to return if is worsening problems and have a repeat hemoglobin tomorrow either on the walk-in clinic or return to the emergency room. If anything worsens or changes return to the emergency room avoid strenuous activities apply ice to the area of discomfort. Medical Records I reviewed the patient's medical records. Lab Data I reviewed the patient's lab results. 04/26/23 12:00 04/26/23 12:00 Laboratory Results WBC 12.24 10^3/uL (3.29-11.43) H 04/26/23 12:00 RBC 3.88 10^6/uL (3.85-5.65) 04/26/23 12:00 Hgb 9.60 g/dL (11.27-16.99) L 04/26/23 12:00 Hct 31.6 % (37-53) L 04/26/23 12:00 MCV 81.4 fl (82-101) L 04/26/23 12:00 MCH 24.7 pg (27-33) L 04/26/23 12:00 MCHC 30.4 g/dL (30-55) 04/26/23 12:00 RDW 15.2 % (12.1-15.1) H 04/26/23 12:00 Plt Count 390 10^3/cmm (157-399) 04/26/23 12:00 MPV 9.2 fL (7.4-10.4) 04/26/23 12:00 Neut % (Auto) 78.0 % 04/26/23 12:00 Lymph % (Auto) 12.8 % 04/26/23 12:00 [place] % (Auto) 8.0 % 04/26/23 12:00 Eos % (Auto) 0.4 % 04/26/23 12:00 Baso % (Auto) 0.2 % 04/26/23 12:00 Neut # (Auto) 9.54 10^3/uL (1.8-7.7) H 04/26/23 12:00 Lymph # (Auto) 1.6 10^3/uL (0.8-4.8) 04/26/23 12:00 [place] # (Auto) 1.0 10^3/uL (0.2-0.9) H 04/26/23 12:00 Eos # (Auto) 0.1 10^3/uL (0.0-0.8) 04/26/23 12:00 Baso # (Auto) 0.0 10^3/uL (0.0-0.1) 04/26/23 12:00 Nucleated RBC % (auto) 0 % 04/26/23 12:00 Nucleated RBCs # 0.0 /100WBC 04/26/23 12:00 PT 15.30 SECONDS (12.1-14.9) H 04/26/23 12:00 INR 1.18 (0.8-1.2) 04/26/23 12:00 APTT 31.8 SECONDS (23.9-36.7) 04/26/23 12:00 Sodium 137 mmol/L (136-145) 04/26/23 12:00 Potassium 4.0 mmol/L (3.5-5.1) 04/26/23 12:00 Chloride 100 mmol/L (98-107) 04/26/23 12:00 Carbon Dioxide 27 mmol/L (22-29) 04/26/23 12:00 Anion Gap 14.0 (5-19) 04/26/23 12:00 BUN 15 mg/dL (8-23) 04/26/23 12:00 Creatinine 0.8 mg/dL (0.7-1.2) 04/26/23 12:00 GFR Calculation 96.7 mL/min (90-130) 04/26/23 12:00 Glucose 113 mg/dL (65-115) 04/26/23 12:00 Calculated Osmolality 286 mOsm/kg (285-295) 04/26/23 12:00 Calcium 9.4 mg/dL (8.5-10.5) 04/26/23 12:00 Total Bilirubin 0.9 mg/dL (0.15-1.2) 04/26/23 12:00 AST 9 U/L (0-40) 04/26/23 12:00 ALT 8 U/L (0-41) 04/26/23 12:00 Alkaline Phosphatase 143 U/L (40-130) H 04/26/23 12:00 Total Protein 6.9 g/dL (6.6-8.7) 04/26/23 12:00 Albumin 3.7 g/dL (3.5-5.2) 04/26/23 12:00 Globulin 3.2 g/dL (1.3-4.6) 04/26/23 12:00 All radiology interpretation(s) finalized by discharge Discharge Plan Discharge Patient Disposition: Home Clinical Impression: Hematoma, Anemia Condition: Stable Prescriptions: No Action buprenorphine-naloxone 8-2 mg film 2 film buccal DAILY Rx Instructions: place 1 film on inside of (each) cheek 4MG 5X DAILY famotidine 20 mg tablet 20 mg PO BID Qty: 180 1RF amlodipine 5 mg tablet 5 mg PO DAILY Qty: 90 1RF ibuprofen 600 mg tablet 600 mg PO Q8H PRN (Reason: pain) Qty: 60 0RF nitroglycerin [Nitrostat] 0.4 mg tablet, sublingual 0.4 mg sublingual Q5M PRN (Reason: chest pain) Qty: 25 3RF Rx Instructions: do not exceed 3 doses per episode tamsulosin 0.4 mg capsule 0.4 mg PO DAILY Qty: 90 3RF gabapentin 800 mg tablet 800 mg PO QID Discharge Orders: Discharge ED (Routine); Ordered 04/26/23 Ordered By: Mik Baeza Referrals: Rebecca Martin FNP [Primary Care Provider] - Discharge Diet: Usual diet Discharge Activity: Resume usual activity Patient Instructions: Opioid Safety, Pain Management Activity Restrictions/Additional Instructions: Thank you for choosing [facility] for your healthcare needs today. Please realize this is an emergency room and that we are providing you with a medical screening exam and this may not be complete and all inclusive of all the testing and or work up that you may need to determine your ailment or severity of your illness. It is very important that you follow up as instructed or that you return to the Emergency Department should you have concerns or if your condition changes or worsens in any way. Ultrasound did not show large hematoma. You do have some anemia. Your hemoglobin should be rechecked tomorrow. Avoid any anti-inflammatory such as ibuprofen Aleve or aspirin. Coding Level of Care Code ED Tool And Fixture Repairer for Maico Lakhani
[2023-04-26 12:07] LABS: Basophils % 0.2 %; Eosinophils # 0.1 10^3/uL (0.0-0.8); Eosinophils % 0.4 %; Hematocrit 31.6 % (37-53); Lymphocytes # 1.6 10^3/uL (0.8-4.8); Lymphocytes % 12.8 %; Mean Corpuscular HGB Conc 30.4 g/dL (30-55); Mean Corpuscular Hemoglobin 24.7 pg (27-33); Mean Corpuscular Volume 81.4 fl (82-101); Mean Platelet Volume 9.2 fL (7.4-10.4); Neutrophils # 9.54 10^3/uL (1.8-7.7); Nucleated Red Blood Cells % 0 %; Platelet Count 390 10^3/cmm (157-399); Red Blood Count 3.88 10^6/uL (3.85-5.65); Red Cell Distribution Width 15.2 % (12.1-15.1); White Blood Count 12.24 10^3/uL (3.29-11.43)
--- NOTE | 2023-04-26 12:14 | PC.PHAR ---
04/26/23 PT STATES HE HAS CONTRACT WITH [facility] AND YOU MAY NEED TO CONTACT THEM FOR PAIN. HE IS OFF THE OPIATES AND TAKES SUBOXONE DAILY.
[2023-04-26 12:18] LABS: INR 1.18 (0.8-1.2)
[2023-04-26 12:19] LABS: Partial Thromboplastin Time 31.8 SECONDS (23.9-36.7)
[2023-04-26 12:24] LABS: Alanine Aminotransferase 8 U/L (0-41); Albumin Level 3.7 g/dL (3.5-5.2); Alkaline Phosphatase 143 U/L (40-130); Aspartate Amino Transferase 9 U/L (0-40); Blood Urea Nitrogen 15 mg/dL (8-23); Calcium 9.4 mg/dL (8.5-10.5); Carbon Dioxide 27 mmol/L (22-29); Chloride 100 mmol/L (98-107); Globulin 3.2 g/dL (1.3-4.6); Glomerular Filtration Rate 96.7 mL/min (90-130); Glucose 113 mg/dL (65-115); Osmolality Calculated 286 mOsm/kg (285-295); Sodium 137 mmol/L (136-145); Total Bilirubin 0.9 mg/dL (0.15-1.2); Total Protein 6.9 g/dL (6.6-8.7)
== END 2023-04-26 13:15 | disposition home or self-care (01) ==
PROVIDERS: Emergency Provider Family Medicine; PCP Nurse Practitioner Family
DX: M79.81 Nontraumatic hematoma of soft tissue (principal); I25.2 Old myocardial infarction; Z72.0 Tobacco use
CPT/HCPCS: 36415; 76882; 80053; 85025; 85610; 85730; 99284

== ENCOUNTER → 2023-04-27 11:54 | Outpatient (BNVA) | payer MEDICARE, SELFPAY | PROVIDERS: PCP Nurse Practitioner Family; Visit Provider Nurse Practitioner | DX: D64.9 Anemia, unspecified (principal) | CPT/HCPCS: 85025 ==

== ENCOUNTER 2023-06-03 09:32 | Outpatient (CLI) | payer MEDICARE, SELFPAY ==
--- NOTE | 2023-06-03 09:43 | XR_ITS ---
WS: [id number] Left hip, 2 views, 06/03/2023 Clinical Data: M25.552 - Pain in left hip Comparison: Pelvis and right hip, 06/19/2022 Findings: No fractures or dislocations are seen. The left hip shows no narrowing, erosion, sclerosis or fragmen tation of the left femoral head. There is irregularity of the left acetabular lip.. The soft tissues are not remarkable. The adjacent pelvis is normal. There is a generator overlying the left ilium unchanged. 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 Tonnis classification: grade 1: sclerosis of femoral head and acetabulum or slight joint space narrow ing or slight lipping at joint margins
--- NOTE | 2023-06-03 09:45 | USCV_ITS ---
Richard Blakely Age: 67 Gender: M : 1955 Exam Date: 06/03/2023 10:11 Ordering Phys: Rebecca Martin-Haroon MEDICAL OFFICE TECHNOLOGIST Technologist: CT Exam Location: [facility] [place] Indication: left leg pain PROCEDURES: Venous duplex imaging was performed in only the left lower extremity. In addition, the posterior tibial and peroneal trunk were evaluated. On the left side, the common femoral, superficial femoral, profunda femoral, popliteal, posterior tibial, greater saphenous veins, and the peroneal trunk were identified and interrogated in the standard fashion. FINDINGS: Normal 2-D Doppler and augmentation and compressibility throughout the lower extremity venous structures. Additional imaging through the proximal calf veins also reveals no thrombus. Limited evaluation of the greater saphenous vein is patent with no thrombus. CONCLUSIONS No DVT left lower extremity. Dr. Paige Farah DO (Electronically Signed) Final Date: 03 June 2023 11:40 S
== END 2023-06-03 09:33 | disposition home or self-care (01) ==
LOC: RAD 09:34
PROVIDERS: PCP Nurse Practitioner Family; Visit Provider Nurse Practitioner Family
DX: M79.89 Other specified soft tissue disorders (principal); M79.605 Pain in left leg; M16.12 Unilateral primary osteoarthritis, left hip
CPT/HCPCS: 73502; 93971

== ENCOUNTER → 2023-07-31 09:53 | Outpatient (BNVA) | payer MEDICARE, SELFPAY | PROVIDERS: PCP Nurse Practitioner Family; Visit Provider Specialist | DX: M16.12 Unilateral primary osteoarthritis, left hip | CPT/HCPCS: 73502; 99204 ==

== ENCOUNTER → 2024-01-02 09:31 | Outpatient (BNVA) | payer MEDICARE, SELFPAY | PROVIDERS: PCP Nurse Practitioner Family; Visit Provider Family Medicine | DX: F11.90 Opioid use, unspecified, uncomplicated (principal) | CPT/HCPCS: 80053; 83615; 85025 ==

== ENCOUNTER → 2024-04-08 15:09 | Outpatient (BNVA) | payer MEDICARE, SELFPAY | PROVIDERS: PCP Nurse Practitioner Family; Visit Provider Internal Medicine Cardiovascular Disease | DX: I42.9 Cardiomyopathy, unspecified (principal); I50.9 Heart failure, unspecified; T14.8XXA Other injury of unspecified body region, initial encounter; X58.XXXA Exposure to other specified factors, initial encounter | CPT/HCPCS: 99204 ==

== ENCOUNTER → 2024-04-16 10:02 | Outpatient (BNVA) | payer MEDICARE, SELFPAY | PROVIDERS: PCP Nurse Practitioner Family; Visit Provider Nurse Practitioner Family | DX: D64.9 Anemia, unspecified (principal); I25.85 Chronic coronary microvascular dysfunction; M25.552 Pain in left hip | CPT/HCPCS: 80053; 83550; 85025 ==

== ENCOUNTER 2024-05-06 08:12 | Outpatient (CLI) | payer MEDICARE, SELFPAY ==
--- NOTE | 2024-05-06 08:30 | USCV_ITS ---
Richard Blakely Age: 68 Gender: M : 1955 Exam Date: 05/06/2024 08:40 Ordering Phys: Betsy Solomon MD Technologist: CT Exam Location: [facility] [place] Indication: sob, BP: 110 / 60 HR: 78 Rhythm: Sinus Technical Quality: Adequate MEASUREMENTS (Male / Female) Normal Values 2D ECHO LVOT Diameter 2.0 cm LV Ejection Fraction MOD 4C 52.8 % LV Ejection Fraction MOD 2C 68.5 % LV Ejection Fraction 2C AL 67.6 % LA Diameter 3.6 cm RA Systolic Volume 4C AL 40.3 ml RA Systolic Volume 4C MOD 38.4 ml LA Sys Volume AL 35.6 cm cubed LA Sys Volume Index AL 16.7 cm cubed/m squared Aorta at Sinotubular Diameter 2.4 cm IVC Diameter 1.9 cm M-MODE LA Ao Ratio MM 1.6 AV Cusp Separation MM 2.0 cm DOPPLER AV Peak Velocity 100.0 cm/s LVOT Peak Velocity 82.0 cm/s AV Area Cont Eq vti 3.0 cm squared AV Area Cont Eq pk 2.6 cm squared MV Peak Velocity 101.0 cm/s MV Area PHT 4.0 cm squared Mitral E to A Ratio 0.6 PV Peak Velocity 99.5 cm/s FINDINGS Left Ventricle Normal left ventricular size, systolic function and wall thickness, with no regional wall motion abnormalities. Left ventricular ejection fraction is estimated at 60 %. Grade I/IV diastolic dysfunction (abnormal relaxation filling pattern), normal to mildly elevated filling pressures. Right Ventricle The right ventricle is normal in size and function. RVSP could not be calculated due to incomplete tricuspid regurgitation velocity profile. Right Atrium The right atrium is normal in size. Left Atrium The left atrium is normal in size. Mitral Valve Structurally normal mitral valve without significant stenosis or prolapse. There is no mitral regurgitation. Aortic Valve Structurally normal aortic valve without significant sclerosis or stenosis. There is no aortic regurgitation. Tricuspid Valve Structurally normal tricuspid valve without significant stenosis or regurgitation. Pulmonic Valve Structurally normal pulmonic valve without significant stenosis. There is no pulmonic regurgitation. Pericardium Normal pericardium without effusion. Aorta Normal ascending aorta dimension. IVC The inferior vena cava appears normal. CONCLUSIONS Normal left ventricular size, systolic function and wall thickness, with no regional wall motion abnormalities. Left ventricular ejection fraction is estimated at 60 %. Grade I/IV diastolic dysfunction (abnormal relaxation filling pattern), normal to mildly elevated filling pressures. There is no pericardial effusion. No significant valve abnormalities. There is no pericardial effusion. Right atrial pressure is around 5 mm of mercury. Betsy Solomon MD (Electronically Signed) Final Date: 06 May 2024 23:45 S
== END 2024-05-06 08:13 | disposition home or self-care (01) ==
LOC: RAD 08:12
PROVIDERS: PCP Nurse Practitioner Family; Visit Provider Internal Medicine Cardiovascular Disease
DX: I50.30 Unspecified diastolic (congestive) heart failure (principal); R06.02 Shortness of breath
CPT/HCPCS: 93306

== ENCOUNTER 2024-07-07 12:14 | Outpatient (CLI) | payer MEDICARE, SELFPAY ==
--- NOTE | 2024-07-07 13:15 | USCV_ITS ---
Richard Blakely Age: 68 Gender: M : 1955 Exam Date: 07/07/2024 12:26 Ordering Phys: Rebecca Martin Technologist: GERSON Exam Location: [facility] [place] Indication: pain HISTORY: Lower extremity pain. PROCEDURES: Venous duplex imaging was performed in only the right lower extremity. In addition, the posterior tibial and peroneal trunk were evaluated. Serial compression, augmentation maneuvers, and spectral Doppler flow evaluation were performed. FINDINGS: Normal 2-D Doppler and augmentation and compressibility throughout the lower extremity venous structures. Additional imaging through the proximal calf veins also reveals no thrombus. Limited evaluation of the greater saphenous vein is patent with no thrombus. Benign lymph nodes. CONCLUSIONS No DVT right lower extremity. Dr. Paige Farah DO (Electronically Signed) Final Date: 07 July 2024 14:31 S
== END 2024-07-07 12:15 | disposition home or self-care (01) ==
LOC: RAD 12:15
PROVIDERS: PCP Nurse Practitioner Family; Visit Provider Nurse Practitioner Family
DX: M79.89 Other specified soft tissue disorders (principal)
CPT/HCPCS: 93971

== ENCOUNTER → 2024-07-09 11:14 | Outpatient (BNVA) | payer MEDICARE, SELFPAY | PROVIDERS: PCP Nurse Practitioner Family; Visit Provider Nurse Practitioner Family | DX: I42.9 Cardiomyopathy, unspecified (principal); I50.9 Heart failure, unspecified; F17.200 Nicotine dependence, unspecified, uncomplicated; I25.2 Old myocardial infarction; T14.8XXA Other injury of unspecified body region, initial encounter; X58.XXXA Exposure to other specified factors, initial encounter | CPT/HCPCS: 99213 ==

== ENCOUNTER → 2024-11-24 10:24 | Outpatient (BNVA) | payer MEDICARE, SELFPAY | PROVIDERS: PCP Nurse Practitioner Family; Visit Provider Nurse Practitioner Family | DX: I10 Essential (primary) hypertension (principal); R53.83 Other fatigue; D64.9 Anemia, unspecified | CPT/HCPCS: 80053; 80061; 83550; 85025 ==